=== PATIENT | female | born 1990 | race Caucasian/White ===

== ENCOUNTER 2017-08-19 04:42 | Inpatient (IN) | payer OTHER ==
[2017-08-19] MEDS ORDERED: Nalbuphine 20 MG/1 ML Amp IVPUSH PRN (05:57)
[2017-08-19] MEDS ORDERED: Ondansetron 4 MG/2 ML SDV IVPUSH PRN (05:57)
[2017-08-19] MEDS ORDERED: Sodium Chloride 0.9% 10 ML Syringe FLUSH PRN (05:57)
--- NOTE | 2017-08-19 05:59 | PCM.LDHP ---
L&D History of Present Illness - General Date of Service: 08/19/17 Admit Problem/Dx: Patient Status Order with Admit Dx/Problem 08/19/17 05:57 Patient Status [ADT] Routine Admission Diagnosis/Problem Admission Diagnosis/Problem Normal labor Source of Information: Patient History Limitations: Reports: No Limitations - History of Present Illness Introduction:: Patient is a 27 y/o at 39 6/7 wks who presents this AM in labor. Contraction started after midnight. Arrived to L&D about 0500 this AM. Currently contractions are strong and nursing reports SROM in the last 45 minutes or so. - Related Data Allergies/Adverse Reactions: Allergies Allergy/AdvReac Type Severity Reaction Status Date / Time No Known Allergies Allergy Verified 08/19/17 06:21 Past Medical History [employer] History: Reports: : 1 Para: 0 LMP (Approximate): - Past Surgical History Female Surgical History: Reports: Breast Implant Social & Family History - Tobacco Use Smoking Status *Q: Never Smoker - Alcohol Use Alcohol Use History: No - Recreational Drug Use Recreational Drug Use: No H&P Review of Systems - Review of Systems: Review Of Systems: See Below General: Reports: No Symptoms Pulmonary: Reports: No Symptoms Cardiovascular: Reports: No Symptoms Gastrointestinal: Reports: No Symptoms Genitourinary: Reports: No Symptoms Musculoskeletal: Reports: No Symptoms L&D Exam - Exam Exam: See Below - OB Specific Contraction Intensity: Moderate to Strong Movement: Active Heart Tones: Present Heart Tones per Min: 135 Heart Rate (FHR) Variability: Moderate (6-25 bmp) Presentation: Vertex - Liu Score Liu Score Cervix Position: Anterior Liu Score Consistency: Soft Liu Score Effacement: >80% Liu Score Dilation: > 5 cm Liu Score 's Station: +1, +2 Liu Score Total: 13 - Exam General: Alert, Oriented, Cooperative Lungs: Clear to Auscultation, Normal Respiratory Effort Cardiovascular: Regular Rate, Regular Rhythm GI/Abdominal Exam: Soft, Non-Tender Genitourinary: Normal external exam Extremities: Normal Inspection Skin: Warm, Dry, Intact - Patient Data Result Diagrams: 08/19/17 06:50 - Problem List (1) 39 weeks gestation of SNOMED Code(s): 19345564 ICD Code: Z3A.39 - 39 WEEKS GESTATION OF Status: Acute Current Visit: Yes (2) Normal labor SNOMED Code(s): 58906269 ICD Code: O80 - ENCOUNTER FOR FULL-TERM UNCOMPLICATED DELIVERY; Z37.9 - OUTCOME OF DELIVERY, UNSPECIFIED Status: Acute Current Visit: Yes (3) Rubella non-immune status, antepartum SNOMED Code(s): 986021457 ICD Code: O99.89 - OTH DISEASES AND CONDITIONS COMPL PREG/CHLDBRTH; Z28.3 - UNDERIMMUNIZATION STATUS Status: Acute Current Visit: Yes Problem List Initiated/Reviewed/Updated: Yes Orders Last 24hrs: Active Orders 24 hr Category Date Time Status Patient Status [ADT] Routine ADT 08/19/17 05:57 Ordered Activity as Tolerated [RC] PFP Care 08/19/17 05:57 Ordered Communication Order [RC] ASDIRECTED Care 08/19/17 05:57 Ordered Heart Tones [RC] ASDIRECTED Care 08/19/17 05:57 Ordered Notify Provider [RC] PFP Care 08/19/17 05:57 Ordered Notify Provider [RC] PRN Care 08/19/17 05:57 Ordered Peripheral IV Care [RC] . DIRECTED Care 08/19/17 05:57 Ordered Vital Signs [RC] PER UNIT ROUTINE Care 08/19/17 05:57 Ordered Regular Diet [DIET] Diet 08/19/17 Breakfast Ordered CBC W/O DIFF,HEMOGRAM [HEME] Routine Lab 08/19/17 05:57 Ordered TYPE AND SCREEN [BBK] Routine Lab 08/19/17 05:57 Ordered Lactated Ringers [Ringers, Lactated] 1,000 ml Med 08/19/17 06:00 Ordered IV ASDIRECTED Nalbuphine [Nubain] Med 08/19/17 05:57 Ordered 10 mg IVPUSH Q2H PRN Ondansetron [Zofran] Med 08/19/17 05:57 Ordered 4 mg IVPUSH Q4H PRN Oxytocin/Lactated Ringers [Pitocin in LR 10 Units/1,000 Med 08/19/17 06:00 Ordered ML] 10 unit in 1,000 ml IV .CONTINUOUS Sodium Chloride 0.9% [Saline Flush] Med 08/19/17 05:57 Ordered 10 ml FLUSH ASDIRECTED PRN Electronic Heart Tones Ext w TOCO [WOMSER] Oth 08/19/17 05:57 Ordered Routine Electronic Heart Tones Internal [WOMSER] Per Unit Oth 08/19/17 05:57 Ordered Routine Peripheral IV Insertion Adult [OM.PC] Routine Oth 08/19/17 05:57 Ordered Resuscitation Status Routine Resus Stat 08/19/17 05:57 Ordered Assessment/Plan Comment:: 27 y/o at 39 6/7 wks presents in labor - now 8 cm * CBC and T&S * GBS negative, no need for antibiotics * Prefers unmedicated labor * Anticipate * MMR prior to discharge
[2017-08-19] MEDS ORDERED: Oxytocin/Lactated Ringers 10 UNIT/1,000 ML BAG IV SCH (06:00)
[2017-08-19] MEDS ORDERED: Lactated Ringers 1,000 ML ONE (06:31)
[2017-08-19] MEDS: Lactated Ringers 1,000 ML IV SCH ×2 (06:44→07:36)
[2017-08-19] MEDS ORDERED: Lidocaine 1% 20 ML MDV INJECT ONE ×2 (07:32→08:22)
[2017-08-19] MEDS ORDERED: FLU Vacc QS 2017-18 (6mos UP)/PF 60 MCG/0.5 ML Syringe IM ONE (07:45)
[2017-08-19] MEDS ORDERED: Lidocaine 1% 50 ML MDV ONE (08:10)
[2017-08-19] MEDS ORDERED: Docusate Sodium 100 MG Cap PO PRN (09:51)
[2017-08-19] MEDS ORDERED: Acetaminophen 325 MG Tab PO PRN (09:51)
[2017-08-19] MEDS ORDERED: Benzocaine/Menthol 20%-0.5% Spray 56 GM Canister TOP PRN (09:51)
[2017-08-19] MEDS ORDERED: Witch Hazel Medicated Pads 100/Jar TOP PRN (09:51)
[2017-08-19] MEDS ORDERED: Lanolin 100% Cream 7 GM Tube TOP PRN (09:51)
[2017-08-19] MEDS: Ibuprofen 600 MG Tab PO PRN ×2 (10:19→20:58)
--- NOTE | 2017-08-19 19:52 | PCM.DEL ---
L & D Note - General Info Date of Service: 08/19/17 - Delivery Note Labor: Spontaneous Delivery Outcome: Livebirth Delivery Method: Spontaneous Vaginal Delivery-Single Delivery Mode: Spontaneous Presentation: Right Occiput Anterior (KIM) Nuchal Cord: None Anesthesia Type: None Amniotic Fluid Description: Clear Episiotomy Type: None Laceration: 2nd Degree Suture type: Vicryl Suture size: 2-0 Placenta: Intact, Spontaneous Cord: 3 Vessels Estimated Blood Loss: 400 Resuscitation Needed: Yes [place]: Bulb Syringe, Stimulated, Warmed, [place] Used Score 1 min: 8 Score 5 min: 9 Delivery Comments (Free Text/Narrative):: Patient found to be complete and began pushing. With maternal pushing effort head delivered from an KIM presentation. No nuchal cord present. With gentle downward traction the shoulders and body delivered. placed on maternal abdomen. Cord clamped and cut. Cord blood obtained. Placenta allowed time to separate and then expelled. Inspection of the perineum showed a 2nd degree laceration which was repaired with a 2-0 vicryl in the typical fashion - Patient Data Vitals - Most Recent: Last Vital Signs Temp 36.8 C 08/19/17 12:45 Pulse 56 L 08/19/17 12:45 Resp 12 08/19/17 12:45 BP 104/55 L 08/19/17 12:45 Pulse Ox 98 08/19/17 12:45 Weight - Most Recent: 78.018 kg I&O - Last 24 Hours: Intake & Output 08/19/17 08/19/17 08/19/17 06:59 14:59 22:59 Intake Total 480 Balance 480 Lab Results Last 24 Hours: Laboratory Results - last 24 hr 08/19/17 08/19/17 Range/Units 06:50 06:50 WBC 11.10 H (3.98-10.04) K/mm3 RBC 4.22 (3.98-5.22) M/mm3 Hgb 12.4 (11.2-15.7) gm/L Hct 36.9 (34.1-44.9) % MCV 87.4 (79.4-94.8) fl MCH 29.4 (25.6-32.2) pg MCHC 33.6 (32.2-35.5) g/dl RDW Std Deviation 42.0 (36.4-46.3) fL Plt Count 158 L (182-369) K/mm3 MPV 11.1 (9.4-12.3) fl Blood Type O POSITIVE Gel Antibody Screen Negative Med Orders - Current: Current Medications Acetaminophen (Tylenol) 650 mg PO Q4H PRN PRN Reason: mild pain or fever Last Admin: 08/19/17 14:49 Dose: 650 mg Benzocaine/Menthol (Dermoplast Pain Relief [place]) 0 gm TOP ASDIRECTED PRN PRN Reason: Perineal Comfort Measure Last Admin: 08/19/17 10:18 Dose: 1 can Docusate Sodium (Colace) 100 mg PO BID PRN PRN Reason: Constipation Emollient Ointment (Lansinoh Hpa) 0 gm TOP ASDIRECTED PRN PRN Reason: Sore Nipples Ibuprofen (Motrin) 600 mg PO Q6H PRN PRN Reason: Mild pain or fever Last Admin: 08/19/17 10:19 Dose: 600 mg Witch Aileen (Tucks) 1 pad TOP ASDIRECTED PRN PRN Reason: Hemorrhoid pain Last Admin: 08/19/17 10:18 Dose: 1 tub Discontinued Medications Lactated Ringer's (Ringers, Lactated) 1,000 mls @ 100 mls/hr IV ASDIRECTED JORGE Last Infusion: 08/19/17 08:15 Dose: 100 mls/hr Oxytocin/Lactated Ringer's (Pitocin In Lr 10 Units/1,000 Ml) 10 unit in 1,000 mls @ 500 mls/hr IV .CONTINUOUS JORGE Last Infusion: 08/19/17 09:20 Dose: 250 mls/hr Lactated Ringer's (Ringers, Lactated) Confirm Administered Dose 1,000 mls @ as directed .ROUTE .STK-MED ONE Stop: 08/19/17 06:32 Last Admin: 08/19/17 07:37 Dose: Not Given Lidocaine HCl (Xylocaine 1%) 20 ml INJECT ONETIME ONE Stop: 08/19/17 07:33 Last Admin: 08/19/17 09:39 Dose: Not Given Lidocaine HCl (Xylocaine 1%) Confirm Administered Dose 50 ml .ROUTE .STK-MED ONE Stop: 08/19/17 08:11 Last Admin: 08/19/17 08:24 Dose: Not Given Lidocaine HCl (Xylocaine 1%) 50 ml INJECT ONETIME ONE Stop: 08/19/17 08:23 Last Admin: 08/19/17 08:15 Dose: 50 ml Nalbuphine HCl (Nubain) 10 mg IVPUSH Q2H PRN PRN Reason: Pain (moderate 4-6) Last Admin: 08/19/17 06:45 Dose: 10 mg Ondansetron HCl (Zofran) 4 mg IVPUSH Q4H PRN PRN Reason: Nausea/Vomiting Sodium Chloride (Saline Flush) 10 ml FLUSH ASDIRECTED PRN PRN Reason: Keep Vein Open - Problem List & Annotations (1) 39 weeks gestation of SNOMED Code(s): 31108215 Code(s): Z3A.39 - 39 WEEKS GESTATION OF Status: Acute Current Visit: Yes (2) Normal labor SNOMED Code(s): 16427318 Code(s): O80 - ENCOUNTER FOR FULL-TERM UNCOMPLICATED DELIVERY; Z37.9 - OUTCOME OF DELIVERY, UNSPECIFIED Status: Acute Current Visit: Yes (3) Rubella non-immune status, antepartum SNOMED Code(s): 810001829 Code(s): O99.89 - OTH DISEASES AND CONDITIONS COMPL PREG/CHLDBRTH; Z28.3 - UNDERIMMUNIZATION STATUS Status: Acute Current Visit: Yes (4) Vaginal delivery SNOMED Code(s): 010971577 Code(s): O80 - ENCOUNTER FOR FULL-TERM UNCOMPLICATED DELIVERY Status: Acute Current Visit: Yes - Problem List Review Problem List Initiated/Reviewed/Updated: Yes - My Orders Last 24 Hours: My Active Orders 08/19/17 05:57 Resuscitation Status Routine 08/19/17 09:51 Activity as Tolerated [RC] PER UNIT ROUTINE Vital Signs [RC] 04,12,20 Acetaminophen [Tylenol] 650 mg PO Q4H PRN Benzocaine/Menthol [Dermoplast Pain Relief [place]] See Dose Instructions TOP ASDIRECTED PRN Docusate Sodium [Colace] 100 mg PO BID PRN Ibuprofen [Motrin] 600 mg PO Q6H PRN Lanolin [Lansinoh HPA] See Dose Instructions TOP ASDIRECTED PRN Witch Aileen [Tucks] 1 pad TOP ASDIRECTED PRN Assess Lochia [WOMSER] Per Unit Routine Assess Uterine Involution [WOMSER] Per Unit Routine Breast Pump [WOMSER] Per Unit Routine Heat Therapy [OM.PC] PRN Ice Therapy [OM.PC] Per Unit Routine Perineal Care [OM.PC] Per Unit Routine Peripheral IV Discontinue [OM.PC] Routine Sitz Bath [OM.PC] Per Unit Routine 08/19/17 Breakfast Regular Diet [DIET] 08/20/17 09:51 Heat Therapy [OM.PC] PRN - Assessment Assessment:: 27 y/o G1 now P1001 PPD#0 from at 39 6/7 wks - Plan Plan:: * Routine cares * Encourage breast feeding * Discharge home in 1-2 days * MMR prior to discharge
--- NOTE | 2017-08-20 07:00 | PCM.DCSUM1 ---
Discharge Summary - Discharge Data Discharge Date: 08/20/17 Discharge Disposition: Home, Self-Care 01 Condition: Good - Discharge Diagnosis/Problem(s) (1) 39 weeks gestation of SNOMED Code(s): 21409556 ICD Code: Z3A.39 - 39 WEEKS GESTATION OF Status: Acute Current Visit: Yes (2) Normal labor SNOMED Code(s): 73416345 ICD Code: O80 - ENCOUNTER FOR FULL-TERM UNCOMPLICATED DELIVERY; Z37.9 - OUTCOME OF DELIVERY, UNSPECIFIED Status: Acute Current Visit: Yes (3) Rubella non-immune status, antepartum SNOMED Code(s): 747628866 ICD Code: O99.89 - OTH DISEASES AND CONDITIONS COMPL PREG/CHLDBRTH; Z28.3 - UNDERIMMUNIZATION STATUS Status: Acute Current Visit: Yes (4) Vaginal delivery SNOMED Code(s): 146682846 ICD Code: O80 - ENCOUNTER FOR FULL-TERM UNCOMPLICATED DELIVERY Status: Acute Current Visit: Yes - Patient Summary/Data Complications: None Consults: None Recommended Follow-up Testing/Procedures: Follow up in 5-6 weeks for check Hospital Course: 27 y/o presented at 39 6/7 wks in labor. Progressed well to complete dilation without the need for augmentation. She underwent went an uncomplicated , see delivery note. she did well and was discharged home on PPD#1 - Patient Instructions Diet: Regular Diet as Tolerated Activity: As Tolerated Activity, Other: Pelvic Rest for 6 weeks Driving: May Drive Today Showering/Bathing: May Shower Showering/Bathing, Other: May Bathe Notify Provider of: Fever, Increased Pain, Swelling and Redness, Drainage, Nausea and/or Vomiting - Discharge Plan Home Medications: Home Meds Docusate Sodium [Colace] 100 mg PO BID PRN cap 08/20/17 [Rx] Ibuprofen [IJD: Ibuprofen] 600 mg PO Q6H PRN tablet 08/20/17 [Rx] Referrals: Emily Ortiz MD [Primary Care Provider] - (5-6 weeks for check) - Discharge Summary/Plan Comment DC Time >30 min.: No - Patient Data Vitals - Most Recent: Last Vital Signs Temp 36.3 C 08/20/17 04:46 Pulse 58 L 08/20/17 04:46 Resp 15 08/20/17 04:46 BP 100/65 08/20/17 04:46 Pulse Ox 98 08/20/17 04:46 Weight - Most Recent: 78.018 kg Lab Results - Last 24 hrs: Laboratory Results - last 24 hr 08/19/17 08/19/17 Range/Units 06:50 06:50 WBC 11.10 H (3.98-10.04) K/mm3 RBC 4.22 (3.98-5.22) M/mm3 Hgb 12.4 (11.2-15.7) gm/L Hct 36.9 (34.1-44.9) % MCV 87.4 (79.4-94.8) fl MCH 29.4 (25.6-32.2) pg MCHC 33.6 (32.2-35.5) g/dl RDW Std Deviation 42.0 (36.4-46.3) fL Plt Count 158 L (182-369) K/mm3 MPV 11.1 (9.4-12.3) fl Blood Type O POSITIVE Gel Antibody Screen Negative Med Orders - Current: Current Medications Acetaminophen (Tylenol) 650 mg PO Q4H PRN PRN Reason: mild pain or fever Last Admin: 08/19/17 14:49 Dose: 650 mg Benzocaine/Menthol (Dermoplast Pain Relief [place]) 0 gm TOP ASDIRECTED PRN PRN Reason: Perineal Comfort Measure Last Admin: 08/19/17 10:18 Dose: 1 can Docusate Sodium (Colace) 100 mg PO BID PRN PRN Reason: Constipation Last Admin: 08/19/17 20:55 Dose: 100 mg Emollient Ointment (Lansinoh Hpa) 0 gm TOP ASDIRECTED PRN PRN Reason: Sore Nipples Ibuprofen (Motrin) 600 mg PO Q6H PRN PRN Reason: Mild pain or fever Last Admin: 08/19/17 20:58 Dose: 600 mg Witch Aileen (Tucks) 1 pad TOP ASDIRECTED PRN PRN Reason: Hemorrhoid pain Last Admin: 08/19/17 10:18 Dose: 1 tub Discontinued Medications Lactated Ringer's (Ringers, Lactated) 1,000 mls @ 100 mls/hr IV ASDIRECTED JORGE Last Infusion: 08/19/17 08:15 Dose: 100 mls/hr Oxytocin/Lactated Ringer's (Pitocin In Lr 10 Units/1,000 Ml) 10 unit in 1,000 mls @ 500 mls/hr IV .CONTINUOUS JORGE Last Infusion: 08/19/17 09:20 Dose: 250 mls/hr Lactated Ringer's (Ringers, Lactated) Confirm Administered Dose 1,000 mls @ as directed .ROUTE .STK-MED ONE Stop: 08/19/17 06:32 Last Admin: 08/19/17 07:37 Dose: Not Given Lidocaine HCl (Xylocaine 1%) 20 ml INJECT ONETIME ONE Stop: 08/19/17 07:33 Last Admin: 08/19/17 09:39 Dose: Not Given Lidocaine HCl (Xylocaine 1%) Confirm Administered Dose 50 ml .ROUTE .STK-MED ONE Stop: 08/19/17 08:11 Last Admin: 08/19/17 08:24 Dose: Not Given Lidocaine HCl (Xylocaine 1%) 50 ml INJECT ONETIME ONE Stop: 08/19/17 08:23 Last Admin: 08/19/17 08:15 Dose: 50 ml Nalbuphine HCl (Nubain) 10 mg IVPUSH Q2H PRN PRN Reason: Pain (moderate 4-6) Last Admin: 08/19/17 06:45 Dose: 10 mg Ondansetron HCl (Zofran) 4 mg IVPUSH Q4H PRN PRN Reason: Nausea/Vomiting Sodium Chloride (Saline Flush) 10 ml FLUSH ASDIRECTED PRN PRN Reason: Keep Vein Open *Q Meaningful Use (DIS) - VTE *Q VTE Criteria *Q: - Stroke *Q Stroke Criteria *Q: - AMI *Q AMI Criteria *Q:
--- NOTE | 2017-08-20 07:00 | PCM.PNPP ---
- General Info Date of Service: 08/20/17 Functional Status: Reports: Pain Controlled, Tolerating Diet, Ambulating, Urinating - Review of Systems General: Reports: No Symptoms Pulmonary: Reports: No Symptoms Cardiovascular: Reports: No Symptoms Gastrointestinal: Reports: No Symptoms Genitourinary: Reports: No Symptoms Musculoskeletal: Reports: No Symptoms - Patient Data Vital Signs - Most Recent: Last Vital Signs Temp 36.3 C 08/20/17 04:46 Pulse 58 L 08/20/17 04:46 Resp 15 08/20/17 04:46 BP 100/65 08/20/17 04:46 Pulse Ox 98 08/20/17 04:46 Weight - Most Recent: 78.018 kg Lab Results - Last 24 Hours: Laboratory Results - last 24 hr 08/19/17 08/19/17 Range/Units 06:50 06:50 WBC 11.10 H (3.98-10.04) K/mm3 RBC 4.22 (3.98-5.22) M/mm3 Hgb 12.4 (11.2-15.7) gm/L Hct 36.9 (34.1-44.9) % MCV 87.4 (79.4-94.8) fl MCH 29.4 (25.6-32.2) pg MCHC 33.6 (32.2-35.5) g/dl RDW Std Deviation 42.0 (36.4-46.3) fL Plt Count 158 L (182-369) K/mm3 MPV 11.1 (9.4-12.3) fl Blood Type O POSITIVE Gel Antibody Screen Negative Med Orders - Current: Current Medications Acetaminophen (Tylenol) 650 mg PO Q4H PRN PRN Reason: mild pain or fever Last Admin: 08/19/17 14:49 Dose: 650 mg Benzocaine/Menthol (Dermoplast Pain Relief [place]) 0 gm TOP ASDIRECTED PRN PRN Reason: Perineal Comfort Measure Last Admin: 08/19/17 10:18 Dose: 1 can Docusate Sodium (Colace) 100 mg PO BID PRN PRN Reason: Constipation Last Admin: 08/19/17 20:55 Dose: 100 mg Emollient Ointment (Lansinoh Hpa) 0 gm TOP ASDIRECTED PRN PRN Reason: Sore Nipples Ibuprofen (Motrin) 600 mg PO Q6H PRN PRN Reason: Mild pain or fever Last Admin: 08/19/17 20:58 Dose: 600 mg Witch Aileen (Tucks) 1 pad TOP ASDIRECTED PRN PRN Reason: Hemorrhoid pain Last Admin: 08/19/17 10:18 Dose: 1 tub Discontinued Medications Lactated Ringer's (Ringers, Lactated) 1,000 mls @ 100 mls/hr IV ASDIRECTED JORGE Last Infusion: 08/19/17 08:15 Dose: 100 mls/hr Oxytocin/Lactated Ringer's (Pitocin In Lr 10 Units/1,000 Ml) 10 unit in 1,000 mls @ 500 mls/hr IV .CONTINUOUS JORGE Last Infusion: 08/19/17 09:20 Dose: 250 mls/hr Lactated Ringer's (Ringers, Lactated) Confirm Administered Dose 1,000 mls @ as directed .ROUTE .[employer]-eyesFinder ONE Stop: 08/19/17 06:32 Last Admin: 08/19/17 07:37 Dose: Not Given Lidocaine HCl (Xylocaine 1%) 20 ml INJECT ONETIME ONE Stop: 08/19/17 07:33 Last Admin: 08/19/17 09:39 Dose: Not Given Lidocaine HCl (Xylocaine 1%) Confirm Administered Dose 50 ml .ROUTE .STK-MED ONE Stop: 08/19/17 08:11 Last Admin: 08/19/17 08:24 Dose: Not Given Lidocaine HCl (Xylocaine 1%) 50 ml INJECT ONETIME ONE Stop: 08/19/17 08:23 Last Admin: 08/19/17 08:15 Dose: 50 ml Nalbuphine HCl (Nubain) 10 mg IVPUSH Q2H PRN PRN Reason: Pain (moderate 4-6) Last Admin: 08/19/17 06:45 Dose: 10 mg Ondansetron HCl (Zofran) 4 mg IVPUSH Q4H PRN PRN Reason: Nausea/Vomiting Sodium Chloride (Saline Flush) 10 ml FLUSH ASDIRECTED PRN PRN Reason: Keep Vein Open - Infant Interaction Disposition, : in Room with Family Interaction: Holding Feeding: Attempted ; Nursed Fair/Poor - Recovery Exam Fundal Tone: Firm Fundal Level: 1 Fingerbreadths Below Umbilicus Fundal Placement: Midline Lochia Amount: Small Lochia Color: Rub[place]/Red Perineum Description: Edematous, Other (see below) Other Perinuem Description: Using tucks and dermoplast Episiotomy/Laceration: None Bladder Status: Voiding Urinary Elimination: Voided - Exam General: Alert, Oriented, Cooperative GI/Abdominal Exam: Soft, Non-Tender Extremities: Normal Inspection, No Pedal Edema - Problem List & Annotations (1) 39 weeks gestation of SNOMED Code(s): 86558648 Code(s): Z3A.39 - 39 WEEKS GESTATION OF Status: Acute Current Visit: Yes (2) Normal labor SNOMED Code(s): 10155437 Code(s): O80 - ENCOUNTER FOR FULL-TERM UNCOMPLICATED DELIVERY; Z37.9 - OUTCOME OF DELIVERY, UNSPECIFIED Status: Acute Current Visit: Yes (3) Rubella non-immune status, antepartum SNOMED Code(s): 288341054 Code(s): O99.89 - OTH DISEASES AND CONDITIONS COMPL PREG/CHLDBRTH; Z28.3 - UNDERIMMUNIZATION STATUS Status: Acute Current Visit: Yes (4) Vaginal delivery SNOMED Code(s): 427501642 Code(s): O80 - ENCOUNTER FOR FULL-TERM UNCOMPLICATED DELIVERY Status: Acute Current Visit: Yes - Problem List Review Problem List Initiated/Reviewed/Updated: Yes - My Orders Last 24 Hours: My Active Orders 08/19/17 09:51 Activity as Tolerated [RC] PER UNIT ROUTINE Vital Signs [RC] 04,12,20 Acetaminophen [Tylenol] 650 mg PO Q4H PRN Benzocaine/Menthol [Dermoplast Pain Relief [place]] See Dose Instructions TOP ASDIRECTED PRN Docusate Sodium [Colace] 100 mg PO BID PRN Ibuprofen [Motrin] 600 mg PO Q6H PRN Lanolin [Lansinoh HPA] See Dose Instructions TOP ASDIRECTED PRN Witch Aileen [Tucks] 1 pad TOP ASDIRECTED PRN Assess Lochia [WOMSER] Per Unit Routine Assess Uterine Involution [WOMSER] Per Unit Routine Breast Pump [WOMSER] Per Unit Routine Heat Therapy [OM.PC] PRN Ice Therapy [OM.PC] Per Unit Routine Perineal Care [OM.PC] Per Unit Routine Peripheral IV Discontinue [OM.PC] Routine Sitz Bath [OM.PC] Per Unit Routine 08/19/17 Breakfast Regular Diet [DIET] 08/20/17 06:59 Ready for Discharge [RC] PER UNIT ROUTINE 08/20/17 09:51 Heat Therapy [OM.PC] PRN - Assessment Assessment:: 27 y/o G1 now P1001 PPD#1 from at 39 6/7 wks - Plan Plan:: * Routine cares * Encourage breast feeding * Discharge home later today * MMR prior to discharge
[2017-08-20] MEDS ORDERED: Measles, Mumps & Rubella Vaccine 0.5 ML SDV SUBCUT ONE (07:51)
[2017-08-20 18:32] VITALS: BP 100/62
== END 2017-08-20 18:20 | disposition home or self-care (01) | DRG 775 ==
LOC: JD.OBCHECK 04:42 → JD.OB 04:46 → JD.OBCHECK 05:57 → OBSVTOIN 08:13 → JD.OB 08:13
PROVIDERS: ADMIT Obstetrics & Gynecology; ATTEND Obstetrics & Gynecology
PROC: 10E0XZZ Delivery of Products of Conception, External Approach (ICD-10-PCS; principal; 2017-08-19)
PROC: 0KQM0ZZ Repair Perineum Muscle, Open Approach (ICD-10-PCS; 2017-08-19)
PROC: 3E0234Z Introduction of Serum, Toxoid and Vaccine into Muscle, Percutaneous Approach (ICD-10-PCS; 2017-08-20)
DX: O70.1 Second degree perineal laceration during delivery (principal); Z37.0 Single live birth; Z3A.40 40 weeks gestation of pregnancy; Z23 Encounter for immunization
CPT/HCPCS: 36415; 59409; 85027; 86850; 86900; 86901; 90707; A9270-GY; J2300; J2590; J7120